=== PATIENT | male | born 1950 | race Caucasian/White ===

== ENCOUNTER 2019-07-05 21:19 | Emergency (ER) | payer BC, OTHER ==
[~2019-07-05] VITALS: Ht 157.5 cm; Wt 59.9 kg
[~2019-07-05 21:19] MED LIST: CEPH-264 PO; INSU100I13 SQ; INSU100I27 SQ; LISI1TAB23 PO; SILV20CR14 TP; blood pressure
--- NOTE | 2019-07-05 21:40 | PHYS DOC ---
Past Medical History Past Medical History: Diabetes-Type II, Hypertension Past Surgical History: No Surgical History Additional Past Surgical Histo: unknown Smoking Status: Former Smoker Alcohol Use: None Drug Use: None General Adult EDM: Chief Complaint: HYPOGLYCEMIA HPI: HPI: 69-year-old male presents to the emergency department complaints of low blood sugar. Patient states is been ongoing x2 days. He states he takes 180 units of the Levemir. Patient states his dosages were increased the last time he was at his primary care physician's office. He currently denies any symptoms on exam. He has a list of blood sugars today have been in the 40s to the 70s. Patient denies any headache or visual change, nausea or vomiting, chest pain or shortness of breath or abdominal pain. Nothing makes his symptoms worse, nothing makes his symptoms better. Review of Systems: Review of Systems: Constitutional: Denies fever or chills. [] Respiratory: Denies cough or shortness of breath. [] Cardiovascular: Denies chest pain or edema. [] GI: Denies abdominal pain, nausea, vomiting, bloody stools or diarrhea. [] Musculoskeletal: Denies back pain or joint pain. [] Neurologic: Denies headache, focal weakness or sensory changes. [] Heart Score: Risk Factors: Risk Factors: DM, Current or recent (<one month) smoker, HTN, HLP, family history of CAD, obesity. Risk Scores: Score 0 - 3: 2.5% MACE over next 6 weeks - Discharge Home Score 4 - 6: 20.3% MACE over next 6 weeks - Admit for Clinical Observation Score 7 - 10: 72.7% MACE over next 6 weeks - Early Invasive Strategies Allergies: Allergies: Allergies Coded Allergies Type Severity Reaction Last Updated Verified No Known Drug Allergies 02/03/15 No Physical Exam: PE: Constitutional: Well developed, well nourished, no acute distress, non-toxic appearance. [] Cardiovascular:Heart rate regular rhythm, no murmur [] Lungs & Thorax: Bilateral breath sounds clear to auscultation [] Abdomen: Bowel sounds normal, soft, no tenderness, no masses, no pulsatile masses. [] Skin: Warm, dry, no erythema, no rash. [] Back: No tenderness, no CVA tenderness. [] Extremities: No tenderness,no edema. [] Neurologic: Alert and oriented X 3, no focal deficits noted. [] Psychologic: Affect normal, judgement normal, mood normal. [] Current Patient Data: Labs: Laboratory Tests Test 07/05/19 21:30 Glucose (Fingerstick) 85 mg/dL (70-99) EKG: EKG: [] Radiology/Procedures: Radiology/Procedures: [] Course & Med Decision Making: Course & Med Decision Making Pertinent Labs and Imaging studies reviewed. (See chart for details) []69-year-old male presents to the emergency department complaints of low blood sugar. Patient states is been ongoing x2 days. He states he takes 180 units of the Levemir. Patient states his dosages were increased the last time he was at his primary care physician's office. He currently denies any symptoms on exam. He has a list of blood sugars today have been in the 40s to the 70s. Patient denies any headache or visual change, nausea or vomiting, chest pain or shortness of breath or abdominal pain. Nothing makes his symptoms worse, nothing makes his symptoms better. Patient is very hard of hearing Dragon Disclaimer: Caterina Disclaimer: This electronic medical record was generated, in whole or in part, using a voice recognition dictation system. Departure Departure Referrals: REMI GALLEGOS MD (PCP) JAYA MATTHEWS MD Jul 05, 2019 21:40
[2019-07-05 22:07] LABS: BASO % 1 % (0-3); EOS % 1 % (0-3); HEMATOCRIT 42.5 % (39.0-53.0); HEMOGLOBIN 14.3 g/dL (13.0-17.5); LYMPH % 11 % (24-48); MEAN CORPUSCULAR HEMOGLOBIN 32 pg (25-35); MEAN CORPUSCULAR HGB CONC 34 g/dL (31-37); MEAN CORPUSCULAR VOLUME 94 fL (79-100); MONO % 10 % (0-9); NEUT % 77 % (31-73); PLATELET COUNT 208 x10^3/uL (140-400); RED BLOOD COUNT 4.52 x10^6/uL (4.30-5.70); RED CELL DISTRIBUTION WIDTH 13.1 % (11.5-14.5); WHITE BLOOD COUNT 8.4 x10^3/uL (4.0-11.0)
[2019-07-05 22:23] LABS: ALBUMIN/GLOBULIN RATIO 0.7 (1.0-1.7); TOTAL PROTEIN 9.4 g/dL (6.4-8.2)
[2019-07-05 22:24] LABS: CALCIUM 9.4 mg/dL (8.5-10.1); CREATININE 1.4 mg/dL (0.7-1.3); GFR 50.2; TOTAL BILIRUBIN 0.6 mg/dL (0.2-1.0)
[2019-07-05 22:25] LABS: POTASSIUM 4.1 mmol/L (3.5-5.1)
[2019-07-05 22:54] LABS: BILIRUBIN,URINE NEGATIVE (NEG); CLARITY,URINE CLEAR; COLOR,URINE YELLOW; NITRITE,URINE NEGATIVE (NEG); PROTEIN,URINE 30 mg/dL (NEG-TRACE); UROBILINOGEN,URINE 0.2 mg/dL (0.2 mg/dL)
[2019-07-05 23:01] VITALS: BP 162/122
[2019-07-05 23:02] LABS: BACTERIA,URINE MANY /HPF (0-FEW); HYALINE CASTS, URINE MODERATE /HPF; SQUAMOUS EPITHELIAL CELL,UR FEW /LPF; WBC,URINE 20-40 /HPF (0-4)
== END 2019-07-05 23:12 | disposition home or self-care (01) ==
LOC: ER 21:19
DX: E11.649 Type 2 diabetes mellitus with hypoglycemia without coma (principal); I10 Essential (primary) hypertension; Z87.891 Personal history of nicotine dependence
CPT/HCPCS: 36415; 80053; 81001; 82962; 85025; 87086; 99285-25